=== PATIENT | female | born 1965 | race African-American/Black ===

== ENCOUNTER → 2016-08-08 | Outpatient (CLI) | payer OTHER ==
[~2016-08-08] MED LIST: AMLO5TAB2 PO; CETI-1 PO; CYCL1TAB29 PO; DEPO150I IM; LISI-519 PO; LOVA20TA PO; PRED20 PO; SPIR25TA PO; ZANT300T PO
[2016-08-08 07:43] LABS: AUTOMATED NEUTROPHIL # 2.6 TH/MM3 (1.8-7.7); BASOPHIL % 0.4 % (0.0-2.0); EOSINOPHIL % 0.9 % (0.0-4.0); HEMATOCRIT 39.3 % (35.0-46.0); HEMO FLAGS DIFF FINAL; LYMPH % 39.3 % (9.0-44.0); MEAN CELL VOLUME 88.6 FL (80.0-100.0); MEAN CORPUSCULAR HEMOGLOBIN 30.2 PG (27.0-34.0); MEAN CORPUSCULAR HGB CONC 34.1 % (32.0-36.0); MONO % 8.2 % (0.0-8.0); NEUT % 51.2 % (16.0-70.0); PLATELET COUNT 150 TH/MM3 (150-450); RED BLOOD COUNT 4.44 MIL/MM3 (4.00-5.30); RED CELL DISTRIBUTION WIDTH 13.4 % (11.6-17.2); WHITE BLOOD COUNT 5.1 TH/MM3 (4.0-11.0)
[2016-08-08 08:04] LABS: ALT (GPT) 21 U/L (10-53); ANION GAP 11 MEQ/L (5-15); AST (GOT) 16 U/L (15-37); BICARBONATE 24.5 MEQ/L (21.0-32.0); BLOOD UREA NITROGEN 11 MG/DL (7-18); CHLORIDE 106 MEQ/L (98-107); GLOMERULAR FILTRATION RATE 106 ML/MIN (>89); GLUCOSE,FASTING 91 MG/DL (74-99); POTASSIUM 3.6 MEQ/L (3.5-5.1); SODIUM (NA) 141 MEQ/L (136-145)
[2016-08-08 08:14] LABS: ALKALINE PHOSPHATASE 77 U/L (45-117); HDL CHOLESTEROL 42.3 MG/DL (40.0-60.0); LDL CHOLESTEROL 98 MG/DL (0-99); TOTAL BILIRUBIN ADULT 0.4 MG/DL (0.2-1.0)
== END ==
LOC: CLAB 07:12
PROVIDERS: ATTEND Family Medicine
DX: E78.5 Hyperlipidemia, unspecified (principal); M54.5 Low back pain; I10 Essential (primary) hypertension; E66.9 Obesity, unspecified
CPT/HCPCS: 36415; 80053; 80061; 84443; 85025

== ENCOUNTER 2016-11-15 09:03 | Emergency (ER) | payer SELFPAY ==
[~2016-11-15] VITALS: Ht 165.1 cm; Wt 102.1 kg
[~2016-11-15 09:03] MED LIST changes: -AMLO5TAB2 PO; -CETI-1 PO; -LISI-519 PO; -PRED20 PO; -ZANT300T PO
[2016-11-15 09:08] VITALS: BP 141/96; PULSE 85; RESP 18; TEMP 98.8; O2SAT 97
[2016-11-15] MEDS ORDERED: LISI-519 PO (09:21)
[2016-11-15] MEDS ORDERED: PRED20 PO (09:40)
[2016-11-15] MEDS ORDERED: ZANT300T PO (09:40)
[2016-11-15] MEDS ORDERED: CETI-1 PO (09:41)
--- NOTE | 2016-11-15 09:41 | PD ---
HPI Chief Complaint: Edema Time Seen by Provider: 09:18 Travel History International Travel<30 days: No Contact w/Intl Traveler<30days: No Traveled to known affect area: No History of Present Illness HPI 51-year-old female complaining the left sided facial swelling since last night. Patient denies any problems with swallowing. Patient denies any shortness of breath. Patient denies any fever chills. Patient denies any pain. Patient denies any injury. Patient has history of hypertension and has been taking lisinopril along time. Patient denies any new exposure. PFSH Past Medical History High Cholesterol: Yes Diminished Hearing: No Headaches: Yes Hypertension: Yes Immunizations Current: Yes Influenza Vaccination: No ?: Not : 4 Para: 2 Miscarriage: 1 : 1 Tubal Ligation: Yes Past Surgical History Abdominal Surgery: Yes (UMBILICAL HERNIA REPAIR) Social History Alcohol Use: Yes (wine occ) Tobacco Use: No Substance Use: No Allergies-Medications (Allergen,Severity, Reaction): Coded Allergies: No Known Allergies (Verified , 11/15/16) Reported Meds & Prescriptions Reported Meds & Active Scripts Active Prednisone 20 Mg Tab 20 Mg PO BID Zantac (Ranitidine HCl) 300 Mg Tab 300 Mg PO DAILY Depo-Provera Inj (Medroxyprogesterone Inj) 150 Mg/Ml Inj 150 Mg IM Q90D Flexeril (Cyclobenzaprine HCl) 10 Mg Tab 10 Mg PO HS Reported Lisinopril 5 Mg Tab 5 Mg PO DAILY Lovastatin 20 Mg Tab 20 Mg PO HS Spironolactone 25 Mg Tab 25 Mg PO BIDPC Review of Systems General / Constitutional: No: Fever Eyes: No: Visual changes HENT: No: Headaches Cardiovascular: No: Chest Pain or Discomfort Respiratory: No: Shortness of Breath Gastrointestinal: No: Abdominal Pain Genitourinary: No: Dysuria Musculoskeletal: No: Pain Skin: No Rash Neurologic: No: Weakness Psychiatric: No: Depression Endocrine: No: Polydipsia Hematologic/Lymphatic: No: Easy Bruising Physical Exam Narrative GENERAL: Well-nourished, well-developed patient. SKIN: Focused skin assessment warm/dry. HEAD: Normocephalic. EYES: No scleral icterus. No injection or drainage. TM is clear. Ear canals normal. Throat: Nonerythematous. No pharyngeal edema. NECK: Supple, trachea midline. No JVD or lymphadenopathy. CARDIOVASCULAR: Regular rate and rhythm without murmurs, gallops, or rubs. RESPIRATORY: Breath sounds equal bilaterally. No accessory muscle use. GASTROINTESTINAL: Abdomen soft, non-tender, nondistended. MUSCULOSKELETAL: No cyanosis, or edema. BACK: Nontender without obvious deformity. No CVA tenderness. Vision has swelling of the lips and the left side of face. No tongue swelling. No edema to the pharynx area. Trachea is midline. No stridor or wheezes. No tenderness on palpation of the face on the gum area. Data Data Last Documented VS Vital Signs Date Time Temp Pulse Resp B/P Pulse Ox O2 Delivery O2 Flow Rate FiO2 11/15/16 09:08 98.8 85 18 141/96 97 Orders Dexamethasone Inj (Decadron Inj) (11/15/16 09:45) Diphenhydramine (Benadryl) (11/15/16 09:45) [facility] Medical Decision Making Medical Screen Exam Complete: Yes Emergency Medical Condition: Yes Differential Diagnosis Differential diagnosis including allergic reaction, angioedema, side effect to medication. Narrative Course 51-year-old female with swelling and left side facial swelling. Diagnosis Primary Impression: Angioedema Qualified Code: T78.3XXA - Angioedema, initial encounter Patient Instructions: General Instructions Additional Instructions: Take Benadryl and prednisone Zantac as directed. Stop lisinopril. Follow-up with personal physician. Amlodipine as directed if elevated blood pressure. Return immediately if any trouble breathing, swallowing. Med/Other Pt SpecificInfo: Prescription(s) given, Med Stopped Scripts Amlodipine 5 Mg Tab5 Mg PO DAILY #30 TAB Ref 0 Prov:Rock Dennis MD 11/15/16 Cetirizine HCl (Zyrtec)10 Mg Tablet1 Tab PO DAILY #10 Prov:Rock Dennis MD 11/15/16 Prednisone 20 Mg Tab20 Mg PO BID #10 TAB Ref 0 Prov:Rock Dennis MD 11/15/16 Ranitidine (Zantac)300 Mg [id number] Mg PO DAILY #10 TAB Ref 0 Prov:Rock Dennis MD 11/15/16 Disposition: 01 DISCHARGE HOME Condition: Stable Rock Dennsi MD Nov 15, 2016 09:41
[2016-11-15] MEDS ORDERED: AMLO5TAB2 PO (09:42)
[2016-11-15] MEDS ORDERED: diphenhydrAMINE HCL 25 MG CAP PO ONE (09:45)
[2016-11-15] MEDS ORDERED: DEXAMETHASONE SOD PHOS 4 MG/ML VIAL IM ONE (09:45)
== END 2016-11-15 09:50 | disposition home or self-care (01) ==
LOC: PHED 09:03
DX: T78.3XXA Angioneurotic edema, initial encounter (principal); I10 Essential (primary) hypertension; E78.00 Pure hypercholesterolemia, unspecified
CPT/HCPCS: 96372; 99284; J1100